=== PATIENT | male | born 1975 ===

== ENCOUNTER 2019-09-05 03:53 | Emergency (ER) | payer OTHER ==
[~2019-09-05] VITALS: Ht 177.8 cm; Wt 108.9 kg
[~2019-09-05 03:53] MED LIST: AMLO5 PO; ATOR10 PO; Adult Low Dose81 MG PO; CIPR500 PO; CYCL10 PO; ENAL10 PO; ENAL20 PO; ENAL5 PO; FENO145 PO; FISH1000 PO; HYDHCL25 PO; INSLI100I SC; INSULANI SC; INSULANPEN SC; LORA.5 PO; Lopressor 25 mg25 MG PO; METO50 PO; METR250 PO; OXYACE5T PO; OXYC10TA19 PO; OXYC5 PO; POTASSIUM GLUCONATE PO; VENL150ER PO
[2019-09-05 05:06] LABS: BASOPHILS ABSOLUTE AUTO 0.05 K/mm3 (0.00-0.23); BASOPHILS PERCENT AUTO 0 % (0-2); EOSINOPHILS ABSOLUTE AUTO 0.07 K/mm3 (0.00-0.68); EOSINOPHILS PERCENT AUTO 1 % (0-6); IMMATURE GRAN ABSOLUTE AUTO 0.07 K/mm3 (0.00-0.10); IMMATURE GRAN PERCENT AUTO 1 % (0-1); LYMPHOCYTES ABSOLUTE AUTO 1.27 K/mm3 (0.84-5.20); LYMPHOCYTES PERCENT AUTO 9 % (21-46); MONOCYTES ABSOLUTE AUTO 0.81 K/mm3 (0.16-1.47); MONOCYTES PERCENT AUTO 6 % (4-13); Mean Corpuscular HGB 29.2 pg (26.0-34.0); Mean Corpuscular Volume 83 fL (80-100); NEUTROPHILS ABSOLUTE AUTO 11.65 K/mm3 (1.96-9.15); NEUTROPHILS PERCENT AUTO 84 % (41-73); Platelet Count 230 K/mm3 (150-400); RDW Coefficient Variation 11.9 % (11.7-14.2); RDW Standard Deviation 36.3 fL (35.1-46.3); White Blood Cell Count 13.92 K/mm3 (4.00-11.30)
[2019-09-05 05:22] LABS: Alanine Aminotransfer (ALT/SGP 60 U/L (12-78); Albumin, Blood 4.2 g/dL (3.4-5.0); Albumin/Globulin Ratio 1.3 (0.8-1.8); Alk Phos 92 U/L (50-136); Anion Gap 8 mmol/L (6-16); Aspartate Aminotrans (AST/SGOT 35 U/L (12-37); Bilirubin, Total 0.4 mg/dL (0.1-1.0); Blood Urea Nitrogen 20 mg/dL (8-24); Bun/Creatinine Ratio 18.9 (12.0-20.0); CO2, Blood 24 mmol/L (21-32); Calcium, Blood 9.4 mg/dL (8.5-10.1); Chloride, Blood 106 mmol/L (98-108); Creatinine, Blood 1.06 mg/dL (0.60-1.20); Globulin, Blood 3.3 g/dL (2.2-4.0); Glomerular Filtration Rate >60 (60-); Glucose, Blood 139 mg/dL (70-99); Potassium, Blood 3.7 mmol/L (3.5-5.5); Sodium, Blood 138 mmol/L (136-145); Total Protein, Blood 7.5 g/dL (6.4-8.2)
[2019-09-05] MEDS ORDERED: BASAGLAR INSULIN (05:44)
[2019-09-05 05:45] LABS: Source, Urine Clean Catch
[2019-09-05] MEDS ORDERED: FLUOXETINE HCL60 MG PO (05:45)
[2019-09-05 05:49] LABS: Bilirubin, Urine Neg (Neg); Blood, Urine 4+ (Neg); Glucose Qualitative, Urine Neg (Neg); Ketones, Urine 3+ (Neg); Leukocyte Esterase, Urine 1+ (Neg); Nitrite, Urine Pos (Neg); Protein, Urine 1+ (Neg); Specific Gravity, Urine 1.015 (1.003-1.022); Urobilinogen, Urine 2+ (Normal)
[2019-09-05 05:58] LABS: Appearance, Urine Clear (Clear)
[2019-09-05 05:59] LABS: Bacteria Rare /hpf; Color, Urine Orange (P-Yellow); Squamous Epithelial Cells Not Seen /hpf (Few); White Blood Cells, Urine 0-2 /hpf (0-5)
[2019-09-05] MEDS ORDERED: HYDR1TAB94 PO (07:08)
[2019-09-05] MEDS ORDERED: CEPH500 PO (07:08)
== END 2019-09-05 08:15 | disposition home or self-care (01) ==
LOC: ER 03:53
PROVIDERS: Emergency Medicine
DX: N13.2 Hydronephrosis with renal and ureteral calculous obstruction (principal); E11.9 Type 2 diabetes mellitus without complications; Z79.4 Long term (current) use of insulin; Z79.899 Other long term (current) drug therapy; Z79.82 Long term (current) use of aspirin; I10 Essential (primary) hypertension; E78.5 Hyperlipidemia, unspecified; G47.30 Sleep apnea, unspecified
CPT/HCPCS: 36415; 74176; 80053; 81001; 85025; 87086; 96365; 96375; 99284-25; J0696; J1170; J2405; J7030